=== PATIENT | male | born 1955 | race Caucasian/White ===

== ENCOUNTER 2021-03-04 08:23 | Outpatient (REF) | payer MEDICARE, SELFPAY ==
[2021-03-04 18:46] LABS: Abs Immature Grans 0.02 10^3/uL (0.0-0.06); Absolute Basophil Count 0.03 10^3/uL (0.0-0.2); Absolute Eosinophil Count 0.11 10^3/uL (0.0-0.7); Absolute Lymphocyte Count 1.42 10^3/uL (1.2-3.4); Absolute Monocyte Count 0.51 10^3/uL (0.1-0.8); Absolute Neutrophil Count 4.44 10^3/uL (1.2-6.7); Basophils % 0.5; Eosinophils % 1.7; HCT 45.7 % (40.0-50.0); HGB 14.6 g/dL (13.5-17.5); Immature Grans % 0.3; Lymphocytes % 21.7; MCH 29.9 pg (27.0-33.0); MCHC 31.9 % (32.0-36.0); MCV 93.6 fL (80-95); MPV 12.1 fL (8.0-11.0); Monocytes % 7.8; Nucleated RBC 0 %; Platelet Count 187 10^3/uL (130-400); RBC 4.88 10^6/uL (4.36-5.78); RDW 12.7 % (11.8-14.1); RDW-SD 43.7 fL; WBC 6.53 10^3/uL (4.4-10.8)
[2021-03-04 19:00] LABS: ALT 40 U/L (16-63); AST 26 U/L (15-37); Alkaline Phosphatase 85 U/L (46-116); Anion Gap 4.4 mmol/L (3-11); BUN 15 mg/dL (7-18); Bilirubin, Total 0.6 mg/dL (0.2-1.0); CO2 33.6 mmol/L (21.0-32.0); CREATININE 0.9 mg/dL (0.70-1.30); Calcium 9.1 mg/dL (8.5-10.1); Calculated LDL 178 mg/dL (<100); Chloride 104 mmol/L (98-107); Cholesterol 243 mg/dL (<200); Glucose 87 mg/dL (74-106); HDL Cholesterol 33 mg/dL (40-60); Sodium 142 mmol/L (136-145); TSH (W/Ref FT4) 0.72 uIU/mL (0.36-3.74); Total Protein 6.8 g/dL (6.4-8.2); Triglyceride 163 mg/dL (<150)
[2021-03-07 01:44] LABS: Vitamin D 25 Total 36.1 ng/mL (30-100)
== END 2021-03-04 08:24 | disposition home or self-care (01) ==
LOC: NCHCN 08:23
PROVIDERS: Visit Provider Physician Assistant
DX: I10 Essential (primary) hypertension (principal); L40.9 Psoriasis, unspecified; E55.9 Vitamin D deficiency, unspecified; J98.4 Other disorders of lung; E03.9 Hypothyroidism, unspecified; E78.2 Mixed hyperlipidemia; R25.2 Cramp and spasm; Z86.010 Personal history of colon polyps
CPT/HCPCS: 80053; 80061; 82306; 84443; 85025

== ENCOUNTER 2021-09-07 15:11 | Outpatient (REF) | payer MEDICARE, OTHER, SELFPAY ==
[2021-09-07 20:32] LABS: ALT 44 U/L (16-63); AST 25 U/L (15-37); Alkaline Phosphatase 74 U/L (46-116); Anion Gap 6.4 mmol/L (3-11); BUN 17 mg/dL (7-18); Bilirubin, Total 0.3 mg/dL (0.2-1.0); CO2 32.6 mmol/L (21.0-32.0); CREATININE 0.8 mg/dL (0.70-1.30); Calcium 8.8 mg/dL (8.5-10.1); Chloride 105 mmol/L (98-107); Glucose 116 mg/dL (74-106); LDL CHOLESTEROL 98 mg/dL (<100); Potassium 3.8 mmol/L (3.5-5.1); Sodium 144 mmol/L (136-145); Total Protein 6.8 g/dL (6.4-8.2)
== END 2021-09-07 15:12 | disposition home or self-care (01) ==
LOC: NCHCN 15:11
PROVIDERS: Visit Provider Physician Assistant
DX: I10 Essential (primary) hypertension (principal); E78.2 Mixed hyperlipidemia
CPT/HCPCS: 80053; 83721

== ENCOUNTER 2022-03-21 18:34 | Outpatient (REF) | payer MEDICARE, OTHER, SELFPAY ==
[2022-03-22 18:35] LABS: PSA, Diagnostic 3.6 ng/mL (<=4.5)
== END 2022-03-21 18:35 | disposition home or self-care (01) ==
LOC: NCHCN 18:34
PROVIDERS: Visit Provider Physician Assistant
DX: R35.1 Nocturia (principal); Z80.42 Family history of malignant neoplasm of prostate
CPT/HCPCS: 84153

== ENCOUNTER 2022-10-25 10:16 | Outpatient (REF) | payer MEDICARE, SELFPAY ==
[2022-10-25 20:44] LABS: ALT 35 U/L (16-63); AST 24 U/L (15-37); Albumin 4.1 g/dL (3.4-5.0); Alkaline Phosphatase 78 U/L (46-116); BUN 15 mg/dL (7-18); Bilirubin, Total 0.4 mg/dL (0.2-1.0); CREATININE 0.9 mg/dL (0.70-1.30); Calcium 9.3 mg/dL (8.5-10.1); Chloride 103 mmol/L (98-107); Estimated GFR 93.03 (mL/min/1.73m2); Glucose 92 mg/dL (74-106); LDL CHOLESTEROL 108 mg/dL (<100); Potassium 3.9 mmol/L (3.5-5.1); Sodium 142 mmol/L (136-145); Total Protein 7.1 g/dL (6.4-8.2)
[2022-10-25 20:45] LABS: Hemoglobin A1C 5.4 % (<5.7)
== END 2022-10-25 10:17 | disposition home or self-care (01) ==
LOC: NCHCN 10:16
PROVIDERS: Visit Provider Physician Assistant
DX: I10 Essential (primary) hypertension (principal); R73.9 Hyperglycemia, unspecified; E78.2 Mixed hyperlipidemia
CPT/HCPCS: 80053; 83721; 83036

== ENCOUNTER 2023-04-26 10:34 | Outpatient (REF) | payer MEDICARE, SELFPAY ==
[2023-04-27 19:10] LABS: PSA, Screening 3.3 ng/mL (<=4.5)
== END 2023-04-26 10:35 | disposition home or self-care (01) ==
LOC: NCHCN 10:34
PROVIDERS: Visit Provider Physician Assistant
DX: Z80.42 Family history of malignant neoplasm of prostate (principal); Z12.5 Encounter for screening for malignant neoplasm of prostate; R35.1 Nocturia
CPT/HCPCS: 84153

== ENCOUNTER 2023-06-11 15:53 | Outpatient (REF) | payer MEDICARE, SELFPAY | END 2023-06-11 15:54 | disposition home or self-care (01) | LOC: NCHCN 15:53 | PROVIDERS: Visit Provider Nurse Practitioner Family | DX: J02.9 Acute pharyngitis, unspecified (principal) | CPT/HCPCS: 87070 ==

== ENCOUNTER 2023-10-24 17:45 | Outpatient (REF) | payer MEDICARE, SELFPAY ==
[2023-10-24 20:42] LABS: ALT 40 U/L (16-63); AST 24 U/L (15-37); Albumin 3.9 g/dL (3.4-5.0); Alkaline Phosphatase 76 U/L (46-116); Anion Gap 11.5 mmol/L (3-11); BUN 12 mg/dL (7-18); Bilirubin, Total 0.4 mg/dL (0.2-1.0); CO2 27.5 mmol/L (21.0-32.0); CREATININE 0.9 mg/dL (0.70-1.30); Calcium 9.2 mg/dL (8.5-10.1); Chloride 103 mmol/L (98-107); Estimated GFR 92.45 (mL/min/1.73m2); Glucose 105 mg/dL (74-106); LDL CHOLESTEROL 102 mg/dL (<100); Potassium 4.1 mmol/L (3.5-5.1); Sodium 142 mmol/L (136-145); Total Protein 7.1 g/dL (6.4-8.2)
[2023-10-24 20:55] LABS: Hemoglobin A1C 5.8 % (<5.7)
== END 2023-10-24 17:46 | disposition home or self-care (01) ==
LOC: NCHCN 17:45
PROVIDERS: Visit Provider Physician Assistant
DX: I10 Essential (primary) hypertension (principal); E78.2 Mixed hyperlipidemia; R73.09 Other abnormal glucose; E66.8 Other obesity
CPT/HCPCS: 80053; 83721; 83036

== ENCOUNTER 2025-04-02 16:42 | Outpatient (REF) | payer MEDICARE, SELFPAY ==
[2025-04-02 19:40] LABS: Abs Immature Grans 0.13 10^3/uL (0.0-0.06); HCT 34.2 % (40.0-50.0); HGB 10.5 g/dL (13.5-17.5); Immature Grans % 1.1 %; MCH 29.5 pg (27.0-33.0); MCHC 30.7 % (32.0-36.0); MCV 96 fL (80-95); MPV 11.4 fL (8.0-11.0); Platelet Count 241 10^3/uL (130-400); RBC 3.56 10^6/uL (4.36-5.78); RDW 15.5 % (11.8-14.1); RDW-SD 51.3 fL; WBC 12.38 10^3/uL (4.4-10.8)
[2025-04-02 19:56] LABS: ALT 46 U/L (16-63); AST 28 U/L (15-37); Albumin 3.6 g/dL (3.4-5.0); Alkaline Phosphatase 158 U/L (46-116); Anion Gap 7.9 mmol/L (3-11); BUN 15 mg/dL (7-18); Bilirubin, Total 1.6 mg/dL (0.2-1.0); CO2 29.1 mmol/L (21.0-32.0); Calcium 9.0 mg/dL (8.5-10.1); Chloride 99 mmol/L (98-107); Estimated GFR 99.12 (mL/min/1.73m2); Glucose 104 mg/dL (74-106); Potassium 4.3 mmol/L (3.5-5.1); Sodium 136 mmol/L (136-145); Total Protein 7.1 g/dL (6.4-8.2)
== END 2025-04-02 16:43 | disposition home or self-care (01) ==
LOC: NCHCN 16:42
PROVIDERS: Visit Provider Physician Assistant
DX: V89.2XXA Person injured in unspecified motor-vehicle accident, traffic, initial encounter (principal)
CPT/HCPCS: 80053; 85025

== ENCOUNTER 2025-04-22 16:21 | Outpatient (REF) | payer MEDICARE, SELFPAY ==
[2025-04-22 20:32] LABS: Abs Immature Grans 0.02 10^3/uL (0.0-0.06); HCT 42.4 % (40.0-50.0); HGB 13.2 g/dL (13.5-17.5); Immature Grans % 0.2 %; MCH 29.1 pg (27.0-33.0); MCHC 31.1 % (32.0-36.0); MCV 94 fL (80-95); MPV 11.1 fL (8.0-11.0); Platelet Count 221 10^3/uL (130-400); RBC 4.53 10^6/uL (4.36-5.78); RDW 13.6 % (11.8-14.1); RDW-SD 47.0 fL; WBC 8.24 10^3/uL (4.4-10.8)
== END 2025-04-22 16:22 | disposition home or self-care (01) ==
LOC: NCHCN 16:21
PROVIDERS: Visit Provider Physician Assistant
DX: D64.9 Anemia, unspecified (principal)
CPT/HCPCS: 85025

== ENCOUNTER 2025-04-24 13:40 | Outpatient (CLI) | payer MEDICARE, SELFPAY ==
--- NOTE | 2025-04-24 13:56 | DI.RAD_ITS ---
Exam(s) XR SACRUM COCCYX EXAM: XR SACRUM COCCYX CLINICAL HISTORY: SACROCOCCYGEAL DISORDER M53.3. TECHNIQUE: 2D digital imaging was performed. COMPARISON: No exams were available for comparison FINDINGS: BONES: No acute fracture is present. No bony destructive lesion is seen. JOINTS: Minimal degenerative changes of the SI joints. No at evidence erosive changes. Minimal degenerative changes of the hip joints, with mild bilateral acetabular spurring. SOFT TISSUE: Normal. IMPRESSION: Mild degenerative changes of the SI joints and hip joints. DATA REPOSITORY: RADIATION DOSE DELIVERED:
== END 2025-04-24 14:00 ==
LOC: DI 05-07 13:40
PROVIDERS: Visit Provider Physician Assistant
DX: M53.3 Sacrococcygeal disorders, not elsewhere classified (principal)
CPT/HCPCS: 72220